=== PATIENT | male | born 1960 | race African-American/Black ===

== ENCOUNTER 2017-07-22 20:40 | Emergency (ER) | payer MEDICAID ==
[~2017-07-22] VITALS: Ht 180.3 cm; Wt 82.0 kg
[2017-07-22 22:49] LABS: BASOPHILS % 0.8 % (0.0-2.0); EOSINOPHILS % 0.6 % (0.0-5.0); HEMATOCRIT. 41.4 % (42.0-52.0); HEMOGLOBIN. 13.8 g/dL (14.0-18.0); LYMPHOCYTES % 16.3 % (20.0-50.0); MEAN CORPUSCULAR HEMOGLOBIN 29.5 pg (28.0-32.0); MEAN CORPUSCULAR VOLUME 88.2 fL (80.0-94.0); MEAN PLATELET VOLUME 8.3 fl (7.4-10.4); MONOCYTES % 11.6 % (2.0-8.0); NEUTROPHILS % 70.7 % (40.0-76.0); PLATELET 184 x1000/uL (130-400); RED BLOOD CELL COUNT 4.69 mill/uL (4.7-6.1); RED CELL DISTRIBUTION WIDTH 15.9 % (11.6-14.6)
[2017-07-22 22:52] LABS: CHLORIDE 106 mEq/L (98-107)
[2017-07-22 22:53] LABS: PROTHROMBIN TIME 10.7 sec (9.4-11.6)
[2017-07-22 22:58] LABS: CLARITY URINE CLEAR (CLEAR); COLOR URINE YELLOW (YELLOW); KETONES URINE NEGATIVE (NEGATIVE); LEUKOCYTE ESTERASE URINE NEGATIVE (NEGATIVE); NITRITE URINE NEGATIVE (NEGATIVE); OCCULT BLOOD URINE NEGATIVE (NEGATIVE); PH URINE 6.5 (4.5-8.0); PROTEIN URINE NEGATIVE (NEGATIVE); SPECIFIC GRAVITY URINE 1.022 (1.005-1.030); UROBILINOGEN URINE 0.2 E.U./dL (0.2-1.0)
[2017-07-22 23:01] LABS: ETHANOL BLOOD < 10 mg/dL
[2017-07-22 23:11] LABS: *AMPHETAMINES SCREEN URINE NEGATIVE (NEGATIVE); *BARBITURATES SCREEN URINE PRESUMTIVE POSITIVE (NEGATIVE); *BENZODIAZEPINES SCREEN URINE NEGATIVE (NEGATIVE); *COCAINE SCREEN URINE NEGATIVE (NEGATIVE); CANNABINOID URINE SCREEN NEGATIVE (NEGATIVE); METHADONE URINE SCREEN NEGATIVE (NEGATIVE); OPIATES URINE SCREEN NEGATIVE (NEGATIVE); PHENCYCLIDINE URINE SCREEN NEGATIVE (NEGATIVE)
[2017-07-22] MEDS ORDERED: PHENYTOIN SODIUM 1,000 MG in SODIUM CHLORIDE 0.9% 100 ML IV ONE (23:45)
[2017-07-23] MEDS ORDERED: PHENOBARBITAL ELIXIR 30 MG/7.5ML UDC PO ONE (01:15)
[2017-07-23] MEDS ORDERED: PHENYTOIN SODIUM EXTENDED 100MG CAPSULE PO ONE (02:15)
[2017-07-23 04:10] VITALS: BP 120/80
[2017-07-24] MEDS ORDERED: HYDR-4001 PO (00:32)
[2017-07-24] MEDS ORDERED: PENI500T PO (00:32)
[2017-07-24] MEDS ORDERED: CHLO2TOW TP (00:32)
[2017-07-24] MEDS ORDERED: AMLO10TA80 PO (00:32)
[2017-07-24] MEDS ORDERED: LEVE1000 PO (00:32)
[2017-07-24] MEDS ORDERED: DOCU-138 PO (00:32)
[2017-07-24] MEDS ORDERED: KEPP500 PO (19:54)
== END 2017-07-23 05:05 | disposition home or self-care (01) ==
LOC: ER 20:40
DX: G40.909 Epilepsy, unspecified, not intractable, without status epilepticus (principal); Z59.0 Homelessness
CPT/HCPCS: 36415; 70450; 80053; 80184; 80185; 80305; 81003; 85025; 85610; 96365; 99285; G0482; J1165; Z7610; J7050